=== PATIENT | male | born 1965 | race Caucasian/White ===

== ENCOUNTER 2020-12-10 08:55 | Emergency (ER) | payer OTHER ==
[~2020-12-10 08:55] MED LIST: CELEXA10 MG PO; PERCOCET 5-3251 EACH PO; VOLTAREN **OUT75 MG PO
[2020-12-10] MEDS ORDERED: CYCLOBENZAPRINE10 MG PO (10:13)
[2020-12-10] MEDS ORDERED: PREDNISONE 20MG20 MG PO (10:13)
[2020-12-10] MEDS ORDERED: NORCO 5-325 TA1 EACH PO (10:13)
== END 2020-12-10 10:30 | disposition home or self-care (01) ==
LOC: FER 08:55
DX: M54.16 Radiculopathy, lumbar region (principal); F17.210 Nicotine dependence, cigarettes, uncomplicated; Z88.0 Allergy status to penicillin
CPT/HCPCS: 99283; J1885